=== PATIENT | female | born 1985 | race Caucasian/White ===

== ENCOUNTER 2020-10-15 21:15 | Emergency (ER) | payer SELFPAY ==
[~2020-10-15] VITALS: Ht 162.6 cm; Wt 54.5 kg
--- NOTE | 2020-10-15 22:26 | PHYS DOC ---
General Adult EDM: Chief Complaint: MULTIPLE COMPLAINTS HPI: HPI: Patient is a 35 year old female who was given Haldol for anxiety and developed shaking/extrapyramidal side effect from the medicine. Patient states she had the same thing happen to her yesterday but was not as bad as today. She was given Benadryl by EMS. Review of Systems: Review of Systems: Constitutional: Denies fever or chills. [] Eyes: Denies change in visual acuity. [] HENT: Denies nasal congestion or sore throat. [] Respiratory: Denies cough or shortness of breath. [] Cardiovascular: Denies chest pain or edema. [] GI: Denies abdominal pain, nausea, vomiting, bloody stools or diarrhea. [] : Denies dysuria. [] Musculoskeletal: Denies back pain or joint pain. [] Integument: Denies rash. [] Neurologic: Denies headache, focal weakness or sensory changes. [] Endocrine: Denies polyuria or polydipsia. [] Lymphatic: Denies swollen glands. [] Psychiatric: Reports shaking/extrapyramidal effect Heart Score: C/O Chest Pain: N/A Risk Factors: Risk Factors: DM, Current or recent (<one month) smoker, HTN, HLP, family history of CAD, obesity. Risk Scores: Score 0 - 3: 2.5% MACE over next 6 weeks - Discharge Home Score 4 - 6: 20.3% MACE over next 6 weeks - Admit for Clinical Observation Score 7 - 10: 72.7% MACE over next 6 weeks - Early Invasive Strategies Current Medications: Current Medications Medications (Trade) Dose Ordered Sig/[facility] Start Time Stop Time Status Last Admin Dose Admin Benztropine Mesylate (Cogentin) 1 mg 1X ONCE 10/15/20 22:30 10/15/20 22:31 10/15/20 22:01 1 MG Allergies: Allergies: Allergies Coded Allergies Type Severity Reaction Last Updated Verified No Known Drug Allergies 10/15/20 No Physical Exam: PE: Constitutional: Well developed, well nourished, no acute distress, non-toxic appearance. [] HENT: Normocephalic, atraumatic, bilateral external ears normal, oropharynx moist, no oral exudates, nose normal. [] Eyes: PERRLA, EOMI, conjunctiva normal, no discharge. [] Neck: Normal range of motion, no tenderness, supple, no stridor. [] Cardiovascular:Heart rate regular rhythm, no murmur [] Lungs & Thorax: Bilateral breath sounds clear to auscultation [] Abdomen: Bowel sounds normal, soft, no tenderness, no masses, no pulsatile masses. [] Skin: Warm, dry, no erythema, no rash. [] Back: No tenderness, no CVA tenderness. [] Extremities: No tenderness, no cyanosis, no clubbing, ROM intact, no edema. [] Neurologic: Alert and oriented X 3, normal motor function, normal sensory function, no focal deficits noted. [] Psychologic: Patient has shaking of bilateral upper extremities EKG: EKG: [] Radiology/Procedures: Radiology/Procedures: [] Course & Med Decision Making: Course & Med Decision Making Pertinent Labs and Imaging studies reviewed. (See chart for details) This is a 35-year-old female patient presenting to the ED today to be evaluated after being given Haldol and developing extrapyramidal effects from the medicine. She was given Benadryl by EMS. She was still shaking. We gave her Cogentin. Symptoms are gone. Discharge back to the [facility]. Lucy Disclaimer: Lucy Disclaimer: This electronic medical record was generated, in whole or in part, using a voice recognition dictation system. Departure Departure Impression: Primary Impression: Extrapyramidal reaction Disposition: 01 HOME / SELF CARE / HOMELESS Condition: STABLE Patient Instructions: Drug Allergy Additional Instructions: You were seen for extrapyramidal movements from psychotic medicine/s. Please do not take the medicine that caused this. Please follow-up with your primary care doctor in the course of this week SCOTT LAFLEUR APRN Oct 15, 2020 22:26
[2020-10-15] MEDS ORDERED: BENZTROPINE MESYLATE 2 MG/2 ML VIAL. IM ONE (22:30)
[2020-10-16 00:20] VITALS: BP 120/71
== END 2020-10-16 01:07 | disposition home or self-care (01) ==
LOC: ER 21:15
DX: G25.89 Other specified extrapyramidal and movement disorders (principal)
CPT/HCPCS: 96372; 99285; J0515

== ENCOUNTER → 2021-08-24 | Outpatient (CLI) | payer MEDICARE, MEDICAID ==
--- NOTE | 2021-08-24 14:40 | RAD ---
Examination: MRI of the right knee without contrast HISTORY: History of right knee pain COMPARISON: None TECHNIQUE: Multiplanar, multisequence MR imaging of the right knee was performed without contrast FINDINGS: The anterior cruciate ligament, posterior cruciate ligament appears intact. The medial meniscus, late ral meniscus appears intact. The medial collateral ligament, lateral collateral ligamentous complex i ncluding the lateral collateral ligament, biceps femoris tendon, popliteus biceps femoris tendon tyree sly appears intact. The medial, lateral retinaculum appears intact. The extensor mechanism is intact. Subtle increased T2 signal identified in the Hoffa's fat pad later ally deep to the infrapatellar tendon. Mild joint space loss identified in the medial compartment IMPRESSION: 1. Subtle increased T2 signal identified in the Hoffa's fat pad laterally deep to the infrapatellar tendon could be secondary to impingement. 2. Mild tricompartmental degenerative changes. Electronically signed by: Rich Prasad MD (08/24/2021 2:37 PM) [id number]
== END ==
LOC: MRI 13:25
PROVIDERS: ATTEND Orthopaedic Surgery
DX: M17.11 Unilateral primary osteoarthritis, right knee (principal); M79.4 Hypertrophy of (infrapatellar) fat pad
CPT/HCPCS: 73721